=== PATIENT | female | born 1975 | race Caucasian/White ===

== ENCOUNTER 2022-09-15 09:58 | Outpatient (CLI) | payer BC, SELFPAY ==
[2022-09-15 13:33] LABS: Chloride* 105 mmol/L (96-114); Potassium* 4.2 mmol/L (3.6-5.1); Sodium* 139 mmol/L (135-149)
[2022-09-15 13:36] LABS: Blood Urea Nitrogen* 14 mg/dL (5-24); Carbon Dioxide* 30 mmol/L (20-32); Cholesterol* 158 mg/dL (90-199); Creatinine* 0.5 mg/dL (0.5-1.5); Estimated Glomerular Filt Rate 118 ml/min; Glucose* 82 mg/dL (60-115); Triglycerides* 328 mg/dL (40-149)
[2022-09-15 13:37] LABS: Calcium* 9.1 mg/dL (8.4-10.6); HDL Cholesterol* 37 mg/dL (>=50); LDL Cholesterol Calculated 55 mg/dL (<100)
== END 2022-09-15 09:59 | disposition home or self-care (01) ==
PROVIDERS: PCP Family Medicine; Visit Provider Family Medicine
DX: E78.5 Hyperlipidemia, unspecified (principal); E66.9 Obesity, unspecified; Z13.1 Encounter for screening for diabetes mellitus; Z12.4 Encounter for screening for malignant neoplasm of cervix
CPT/HCPCS: 80048; 80061

== ENCOUNTER 2022-11-12 14:56 | Outpatient (CLI) | payer BC, SELFPAY ==
--- NOTE | 2022-11-12 15:40 | CRLHL7_ITS ---
For Patients: As a result of the Century Cures Act, medical imaging exams and procedure reports are released immediately into your electronic medical record. You may view this report before your referring provider. If you have questions, please contact your health care provider. BILATERAL SCREENING MAMMOGRAM WITH COMPUTER-AIDED DETECTION TECHNIQUE: CC and MLO views were obtained. These mammographic images have been obtained using full-field digital technique. These mammographic images were interpreted with the benefit of computer-aided detection. COMPARISON FILM: 03/31/21, , 05/10/17. FINDINGS: There are scattered areas of fibroglandular density IMPRESSION: There is no radiographic evidence for malignancy. ASSESSMENT: BI-RADS Category 1: Negative RECOMMENDATION: Routine screening mammogram in 1 year. A lay language report of this examination will be provided to the patient. Harsh Arriaga M.D. Diagnostic Radiologist [email or web address] ADRIA/Dictated by: Harsh Arriaga MD @ 11/13/2022 9:35:00 AM (Electronically Signed)
== END 2022-11-12 14:57 | disposition home or self-care (01) ==
LOC: MAMMO 14:57
PROVIDERS: PCP Family Medicine; Visit Provider Family Medicine
DX: Z12.31 Encounter for screening mammogram for malignant neoplasm of breast (principal)
CPT/HCPCS: 77067